=== PATIENT | male | born 1990 | race Caucasian/White ===

== ENCOUNTER → 2017-02-06 | Outpatient (CLI) | payer BC ==
[2017-02-09 13:31] LABS: DEAMIDATED GLIADIN IGA AB 11 units (0-19); DEAMIDATED GLIADIN IGG AB 13 units (0-19)
[2017-02-11 07:20] LABS: T-TRANSGLUTAMINASE (TTG) IGG 5 U/mL (0-5)
== END ==
LOC: OD 17:15
PROVIDERS: ATTEND Internal Medicine
DX: Z00.00 Encounter for general adult medical examination without abnormal findings (principal)
CPT/HCPCS: 36415; 83516; 86256; 86317

== ENCOUNTER → 2020-10-11 | Outpatient (CLI) | payer BC ==
[~2020-10-11] MED LIST: COVID-19 VACCINE (PFIZER)/PF 30 MCG/0.3 ML VIAL IM ONE; EPINEPHRINE INJ/PF 1 MG/1 ML AMPULE IM PRN
== END ==
LOC: EMPHEALTH 09:26
PROVIDERS: ATTEND Internal Medicine
DX: Z23 Encounter for immunization (principal)
CPT/HCPCS: 91300

== ENCOUNTER → 2020-11-01 | Outpatient (CLI) | payer BC | LOC: EMPHEALTH 09:24 | PROVIDERS: ATTEND Internal Medicine | DX: Z23 Encounter for immunization (principal) | CPT/HCPCS: 91300 ==